=== PATIENT | female | born 1950 | race Caucasian/White ===

== ENCOUNTER → 2017-03-12 | Outpatient (CLI) | payer MEDICARE ==
[~2017-03-12] MED LIST: VICOBULK OR
--- NOTE | 2017-03-12 11:51 | REPMRS ---
Patient History The patient states she has not had a clinical breast exam in over a year. Patient is postmenopausal. Family history of breast cancer in mother at age 50 or over. Digital Woman Screen Mammo: March 12, 2017 - Exam #: [id number] Bilateral CC and MLO view(s) were taken. Technologist: Mellissa Fields, Technologist Prior study comparison: March 16, 2016, digital woman screen mammo performed at [facility]. March 02, 2014, digital woman screen mammo performed at [facility]. FINDINGS: There are scattered fibroglandular densities. There has been no change in the appearance of the mammogram from the prior studies. There is a mild amount of scattered fibroglandular density which is fairly symmetric. There is no interval development of dominant mass, architectural distortion, or clustered microcalcification suggestive of malignancy. ASSESSMENT: BI-RADS/ACR category 1 mammogram. Negative. Recommendation Routine screening mammogram in 1 year (for women over age 40). This mammogram was interpreted with the aid of an FDA-approved computer-aided dectection system. Electronically Signed By: Sidney Eckert MD 03/12/17 [id number]
--- NOTE | 2017-03-14 10:19 | DEXA ---
AP SPINE L1 - L4 1.019 -1.4 0.2 LT FEMUR TOTAL 0.846 -1.3 0.0 RT FEMUR TOTAL 0.854 -1.2 0.1 TOTAL BODY TOTAL OTHER DUAL FEMUR FRAX* ASSESSMENT Risk factors: History of fracture (adult). 10 year probability of fracture Major osteoporotic fracture 15.9 % Hip fracture 2.1 % COMMENTS: There is low bone density of the spine and hips. The density of the spine has decreased 4.0% since 03/12/2015. The density of the left hip has decreased 2.2% since 03/12/2015. The density of the right hip is 0.0% since 03/12/2015. FOLLOW-UP: Recommendation for the next bone density exam: 2 years. CHANELLE
== END ==
LOC: M WHC 09:57
PROVIDERS: ATTEND Physician Assistant Medical
DX: Z12.31 Encounter for screening mammogram for malignant neoplasm of breast (principal); Z13.820 Encounter for screening for osteoporosis; M89.9 Disorder of bone, unspecified
CPT/HCPCS: 77080; G0202

== ENCOUNTER → 2017-03-13 | Outpatient (CLI) | payer MEDICARE ==
[2017-03-13 13:32] LABS: ALBUMIN 3.7 GM/DL (3.2-5.2); ALBUMIN/GLOBULIN RATIO 0.95 (1.00-1.93); ALKALINE PHOSPHATASE 141 U/L (45-117); ALT/SGPT 31 U/L (12-78); ANION GAP 9 MEQ/L (8-16); AST/SGOT 26 U/L (15-37); BILIRUBIN,TOTAL 0.8 MG/DL (0.2-1.0); BLOOD UREA NITROGEN 13 MG/DL (7-18); CALCIUM LEVEL 9.3 MG/DL (8.8-10.2); CARBON DIOXIDE LEVEL 25 MEQ/L (21-32); CHLORIDE LEVEL 106 MEQ/L (98-107); CHOLESTEROL LEVEL 147 MG/DL (<200); FREE T4 1.11 NG/DL (0.76-1.46); GLOMERULAR FILTRATION RATE > 60.0 (>45); GLUCOSE, FASTING 107 MG/DL (80-110); SODIUM LEVEL 140 MEQ/L (136-145); TOTAL PROTEIN 7.6 GM/DL (6.4-8.2); TRIGLYCERIDES LEVEL 222 MG/DL (<150)
== END ==
LOC: M WUC 09:12
PROVIDERS: ATTEND Physician Assistant Medical
DX: E78.5 Hyperlipidemia, unspecified (principal)

== ENCOUNTER → 2018-03-14 | Outpatient (CLI) | payer MEDICARE | LOC: M WHC 12:53 | DX: Z12.31 Encounter for screening mammogram for malignant neoplasm of breast (principal) | CPT/HCPCS: 77067 ==

== ENCOUNTER → 2018-03-15 | Outpatient (CLI) | payer MEDICARE ==
[2018-03-15 13:19] LABS: ALBUMIN 3.5 GM/DL (3.2-5.2); ALBUMIN/GLOBULIN RATIO 0.92 (1.00-1.93); ALKALINE PHOSPHATASE 147 U/L (45-117); ALT/SGPT 32 U/L (12-78); ANION GAP 8 MEQ/L (8-16); AST/SGOT 30 U/L (7-37); BILIRUBIN,TOTAL 0.5 MG/DL (0.2-1.0); BLOOD UREA NITROGEN 13 MG/DL (7-18); CALCIUM LEVEL 9.1 MG/DL (8.8-10.2); CARBON DIOXIDE LEVEL 29 MEQ/L (21-32); CHLORIDE LEVEL 108 MEQ/L (98-107); CHOLESTEROL LEVEL 127 MG/DL (<200); CHOLESTEROL RISK RATIO 3.735 (<5); CREATININE FOR GFR 0.86 MG/DL (0.55-1.30); GLOMERULAR FILTRATION RATE > 60.0 (>45); GLUCOSE, FASTING 95 MG/DL (70-100); HDL CHOLESTEROL 34 MG/DL (>40); LDL CHOLESTEROL 54.6 MG/DL (<100); NON-HDL-C 93 MG/DL; POTASSIUM SERUM 4.5 MEQ/L (3.5-5.1); SODIUM LEVEL 145 MEQ/L (136-145); TOTAL PROTEIN 7.3 GM/DL (6.4-8.2); TRIGLYCERIDES LEVEL 192 MG/DL (<150)
== END ==
LOC: M WUC 08:41
DX: E78.5 Hyperlipidemia, unspecified (principal)
CPT/HCPCS: 80053

== ENCOUNTER → 2019-03-12 | Outpatient (CLI) | payer MEDICARE ==
[2019-03-12 17:38] LABS: ALBUMIN 3.8 GM/DL (3.2-5.2); ALT/SGPT 31 U/L (12-78); BILIRUBIN,TOTAL 0.6 MG/DL (0.2-1.0); BLOOD UREA NITROGEN 14 MG/DL (7-18); CALCIUM LEVEL 9.6 MG/DL (8.8-10.2); CARBON DIOXIDE LEVEL 30 MEQ/L (21-32); CHLORIDE LEVEL 104 MEQ/L (98-107); CHOLESTEROL LEVEL 165 MG/DL (<200); CHOLESTEROL RISK RATIO 3.837 (<5); GLOMERULAR FILTRATION RATE > 60.0 (>45); GLUCOSE, FASTING 84 MG/DL (70-100); HDL CHOLESTEROL 43 MG/DL (>40); LDL CHOLESTEROL 68 MG/DL (<100); NON-HDL-C 122 MG/DL; SODIUM LEVEL 139 MEQ/L (136-145); TOTAL PROTEIN 7.7 GM/DL (6.4-8.2); TRIGLYCERIDES LEVEL 268 MG/DL (<150)
== END ==
LOC: M WUC 14:00
PROVIDERS: ATTEND Physician Assistant Medical
DX: E78.5 Hyperlipidemia, unspecified (principal)

== ENCOUNTER → 2020-02-27 | Outpatient (CLI) | payer MEDICARE ==
[2020-02-27 11:12] LABS: ALBUMIN 3.8 GM/DL (3.2-5.2); ALT/SGPT 30 U/L (12-78); BILIRUBIN,TOTAL 0.5 MG/DL (0.2-1.0); BLOOD UREA NITROGEN 15 MG/DL (7-18); CALCIUM LEVEL 9.6 MG/DL (8.8-10.2); CARBON DIOXIDE LEVEL 26 MEQ/L (21-32); CHLORIDE LEVEL 108 MEQ/L (98-107); CHOLESTEROL LEVEL 147 MG/DL (<200); CREATININE FOR GFR 0.84 MG/DL (0.55-1.30); GLOMERULAR FILTRATION RATE > 60.0 (>45); GLUCOSE, FASTING 119 MG/DL (70-100); HDL CHOLESTEROL 44 MG/DL (>40); LDL CHOLESTEROL 69 MG/DL (<100); NON-HDL-C 103 MG/DL; POTASSIUM SERUM 4.8 MEQ/L (3.5-5.1); SODIUM LEVEL 141 MEQ/L (136-145); TOTAL PROTEIN 8.1 GM/DL (6.4-8.2); TRIGLYCERIDES LEVEL 172 MG/DL (<150)
== END ==
LOC: M WUC 08:41
PROVIDERS: ATTEND Physician Assistant Medical
DX: E78.5 Hyperlipidemia, unspecified (principal)

== ENCOUNTER → 2021-03-04 | Outpatient (CLI) | payer MEDICARE ==
[2021-03-04 11:39] LABS: BASO % 0.8 % (0.0-1.0); EOS # 0.2 10^3/uL (0.0-0.5); EOS % 4.7 % (0.0-3.0); HEMATOCRIT 44.7 % (36.0-47.0); HEMOGLOBIN 14.4 g/dl (12.0-15.5); LYMPH # 1.5 10^3/uL (1.5-5.0); LYMPH % 28.6 % (24.0-44.0); MEAN CORPUSCULAR HEMOGLOBIN 30.3 pg (27.0-33.0); MEAN CORPUSCULAR HGB CONC 32.2 g/dl (32.0-36.5); MEAN CORPUSCULAR VOLUME 93.9 fl (80.0-96.0); MONO # 0.6 10^3/uL (0.0-0.8); MONO % 11.9 % (2.0-8.0); NEUTROPHILS # 2.8 10^3/uL (1.5-8.5); NEUTROPHILS % 53.8 % (36.0-66.0); PLATELET COUNT, AUTOMATED 249 10^3/uL (150-450); RED BLOOD COUNT 4.76 10^6/uL (4.00-5.40); WHITE BLOOD COUNT 5.1 10^3/uL (4.0-10.0)
[2021-03-04 12:29] LABS: ALBUMIN 3.6 GM/DL (3.2-5.2); ALT/SGPT 32 U/L (12-78); BILIRUBIN,TOTAL 0.4 MG/DL (0.2-1.0); BLOOD UREA NITROGEN 15 MG/DL (7-18); CALCIUM LEVEL 9.7 MG/DL (8.8-10.2); CARBON DIOXIDE LEVEL 31 MEQ/L (21-32); CHLORIDE LEVEL 109 MEQ/L (98-107); CHOLESTEROL LEVEL 147 MG/DL (<200); CREATININE FOR GFR 0.82 MG/DL (0.55-1.30); GLOMERULAR FILTRATION RATE > 60.0 (>39); GLUCOSE, FASTING 92 MG/DL (70-100); HDL CHOLESTEROL 44 MG/DL (>40); LDL CHOLESTEROL 79 MG/DL (<100); NON-HDL-C 103 MG/DL; POTASSIUM SERUM 4.2 MEQ/L (3.5-5.1); SODIUM LEVEL 144 MEQ/L (136-145); TOTAL PROTEIN 7.5 GM/DL (6.4-8.2); TRIGLYCERIDES LEVEL 122 MG/DL (<150)
== END ==
LOC: M WUC 09:44
PROVIDERS: ATTEND Family Medicine
DX: Z00.00 Encounter for general adult medical examination without abnormal findings (principal); E78.5 Hyperlipidemia, unspecified; R73.01 Impaired fasting glucose

== ENCOUNTER → 2022-01-07 | Outpatient (CLI) | payer MEDICARE ==
[2022-01-07 13:11] LABS: ALBUMIN 3.8 GM/DL (3.2-5.2); BLOOD UREA NITROGEN 16 MG/DL (7-18); CALCIUM LEVEL 9.5 MG/DL (8.8-10.2); CARBON DIOXIDE LEVEL 26 MEQ/L (21-32); CHLORIDE LEVEL 106 MEQ/L (98-107); CREATININE FOR GFR 0.85 MG/DL (0.55-1.30); GLOMERULAR FILTRATION RATE > 60.0 (>39); GLUCOSE, FASTING 109 MG/DL (70-100); PHOSPHORUS LEVEL 1.9 MG/DL (2.5-4.9); POTASSIUM SERUM 3.7 MEQ/L (3.5-5.1); SODIUM LEVEL 138 MEQ/L (136-145)
== END ==
LOC: M LAB 11:49
PROVIDERS: ATTEND Student in an Organized Health Care Education/Training Program
DX: U07.1 COVID-19 (principal)

== ENCOUNTER 2022-01-17 15:20 | Inpatient (IN) | payer MEDICARE ==
[~2022-01-17] VITALS: Ht 165.1 cm; Wt 62.5 kg
[2022-01-17] MEDS ORDERED: ATOR1TAB21 PO (15:33)
[2022-01-17 16:07] LABS: VENOUS BASE EXCESS -0.3 (-2.0-2.0); VENOUS HCO3 23.4 MEQ/L (23.0-27.0); VENOUS O2 SATURATION 89.4 % (60.0-80.0); VENOUS PARTIAL PRESSURE CO2 35.7 mmHg (38.0-50.0); VENOUS PARTIAL PRESSURE O2 52.8 mmHg (30.0-50.0); VENOUS PH 7.434 UNITS (7.330-7.430); VENOUS TOTAL CO2 24.5 MEQ/L (24.0-28.0)
[2022-01-17 16:13] LABS: BASO % 0.2 % (0.0-1.0); HEMATOCRIT 44.7 % (36.0-47.0); HEMOGLOBIN 15.1 g/dl (12.0-15.5); LYMPH # 0.8 10^3/uL (1.5-5.0); MEAN CORPUSCULAR HEMOGLOBIN 31.1 pg (27.0-33.0); MEAN CORPUSCULAR HGB CONC 33.8 g/dl (32.0-36.5); MONO # 0.9 10^3/uL (0.0-0.8); MONO % 4.6 % (2.0-8.0); NEUTROPHILS # 16.8 10^3/uL (1.5-8.5); NEUTROPHILS % 89.7 % (36.0-66.0); PLATELET COUNT, AUTOMATED 339 10^3/uL (150-450); RED BLOOD COUNT 4.86 10^6/uL (4.00-5.40); WHITE BLOOD COUNT 18.8 10^3/uL (4.0-10.0)
[2022-01-17 16:41] LABS: OSMOLALITY SERUM 293 MOSM/KG (280-301)
[2022-01-17 17:01] LABS: ACETAMINOPHEN LEVEL < 2.0 UG/ML (10.0-30.0); ALBUMIN 3.6 GM/DL (3.2-5.2); ALT/SGPT 43 U/L (12-78); BILIRUBIN,DIRECT < 0.1 MG/DL (0.0-0.2); BILIRUBIN,TOTAL 0.4 MG/DL (0.2-1.0); BLOOD UREA NITROGEN 14 MG/DL (7-18); CALCIUM LEVEL 9.7 MG/DL (8.8-10.2); CARBON DIOXIDE LEVEL 22 MEQ/L (21-32); CHLORIDE LEVEL 110 MEQ/L (98-107); CREATININE FOR GFR 1.13 MG/DL (0.55-1.30); ETHYL ALCOHOL (ETHANOL) < 0.003 % (0.000-0.010); GLOMERULAR FILTRATION RATE 50.5 (>39); GLUCOSE, FASTING 133 MG/DL (70-100); SALICYLATE LEVEL < 1.7 MG/DL (5.0-30.0); SODIUM LEVEL 141 MEQ/L (136-145); TOTAL PROTEIN 7.8 GM/DL (6.4-8.2)
[2022-01-17 17:27] LABS: AMPHETAMINES LEVEL URINE NEGATIVE (NEGATIVE); BARBITURATES URINE NEGATIVE (NEGATIVE); BENZODIAZEPINES URINE NEGATIVE (NEGATIVE); CANNABINOIDS URINE NEGATIVE (NEGATIVE); COCAINE METABOLITE URINE NEGATIVE (NEGATIVE); METHADONE URINE NEGATIVE (NEGATIVE); OPIATES URINE NEGATIVE (NEGATIVE); PHENCYCLIDINE URINE NEGATIVE (NEGATIVE)
[2022-01-17 17:34] LABS: RSV AMPLIFICATION NEGATIVE (NEGATIVE)
[2022-01-17] MEDS ORDERED: NS 1,000 ML IV ONE ×2 (17:55→18:30)
[2022-01-17] MEDS ORDERED: LACTULOSE 20 GM/30 ML SYRUP UD PR ONE (18:30)
[2022-01-17] MEDS ORDERED: HOME MED LIST COMPLETE! XX SCH (18:50)
[2022-01-17 19:14] LABS: ERYTHROCYTE SEDIMENTATION RATE 22 mm/hr (0-30)
[2022-01-17] MEDS ORDERED: KETOROLAC 30 MG/ML 1ML VIAL IV ONE (19:20)
[2022-01-17] MEDS ORDERED: METOCLOPRAMIDE INJ 10MG/2ML VIAL (J2765 PER 1) IV ONE (19:20)
[2022-01-17] MEDS: cefTRIAXone SOD 2 GM in D5W MINI-BAG PLUS 50 ML IV SCH (19:46)
[2022-01-17] MEDS ORDERED: GLUCAGON INJ 1MG VIAL SC PRN (20:20)
[2022-01-17] MEDS ORDERED: GLUCOSE 4GM CHEW TABLET PO PRN (20:20)
[2022-01-17] MEDS ORDERED: DEXTROSE 50% 50 ML SYRINGE IV PRN (20:20)
[2022-01-17] MEDS ORDERED: ACETAMINOPHEN TAB 650MG DOSE (2X325MG) PO ONE (20:20)
[2022-01-17 20:35] LABS: INR 1.05; PROTHROMBIN TIME 14.1 SECONDS (12.7-14.5)
[2022-01-17 20:36] LABS: PARTIAL THROMBOPLASTIN TIME 27.6 SECONDS (25.9-37.0)
[2022-01-17 20:39] LABS: D-DIMER QUANT 2829.41 ng/ml (<500)
[2022-01-17 20:51] LABS: FERRITIN 341 NG/ML (8-252); LDH LACTATE DEHYDROGENASE 261 U/L (84-246)
[2022-01-17] MEDS ORDERED: ATORVASTATIN 20 MG TAB PO ONE (23:05)
[2022-01-17] MEDS ORDERED: ASPIRIN 325 MG TAB PO ONE (23:05)
[2022-01-17] MEDS: D5W/0.45% SODIUM CHLORIDE 1,000 ML IV SCH (23:40)
[2022-01-18 06:52] LABS: BASO # 0.1 10^3/uL (0.0-0.2); BASO % 0.5 % (0.0-1.0); EOS # 0.1 10^3/uL (0.0-0.5); EOS % 1.2 % (0.0-3.0); HEMATOCRIT 37.8 % (36.0-47.0); LYMPH # 1.4 10^3/uL (1.5-5.0); LYMPH % 14.2 % (24.0-44.0); MEAN CORPUSCULAR HEMOGLOBIN 30.6 pg (27.0-33.0); MEAN CORPUSCULAR HGB CONC 32.5 g/dl (32.0-36.5); MONO # 1.1 10^3/uL (0.0-0.8); MONO % 10.7 % (2.0-8.0); NEUTROPHILS # 7.4 10^3/uL (1.5-8.5); NEUTROPHILS % 72.9 % (36.0-66.0); PLATELET COUNT, AUTOMATED 256 10^3/uL (150-450); RED BLOOD COUNT 4.02 10^6/uL (4.00-5.40); WHITE BLOOD COUNT 10.2 10^3/uL (4.0-10.0)
[2022-01-18 06:58] LABS: HEMOGLOBIN 12.3 g/dl (12.0-15.5)
[2022-01-18 07:26] LABS: CALCIUM LEVEL 7.8 MG/DL (8.8-10.2); CREATININE FOR GFR 1.01 MG/DL (0.55-1.30); GLOMERULAR FILTRATION RATE 57.5 (>39); MAGNESIUM LEVEL 2.4 MG/DL (1.8-2.4); POTASSIUM SERUM 3.8 MEQ/L (3.5-5.1)
[2022-01-18] MEDS ORDERED: NS 1,000 ML IV ONE (07:35)
[2022-01-18] MEDS ORDERED: ASPIRIN ENTERIC 325 MG TAB PO ONE (07:35)
[2022-01-18 08:39] LABS: CHOLESTEROL RISK RATIO 3.666 (<5)
[2022-01-18] MEDS: D5W/0.45% SODIUM CHLORIDE 1,000 ML IV SCH (10:30)
[2022-01-18 11:30] VITALS: BP 139/65
[2022-01-18 16:00] VITALS: BP 136/69
[2022-01-18] MEDS ORDERED: NS 1,000 ML IV SCH (18:45)
[2022-01-18 20:00] VITALS: BP 142/64; O2SAT 96
[2022-01-18] MEDS: cefTRIAXone SOD 2 GM in D5W MINI-BAG PLUS 50 ML IV SCH (20:11)
[2022-01-18] MEDS ORDERED: ATORVASTATIN 20 MG TAB PO SCH (21:00)
[2022-01-19] VITALS: BP 141/76
[2022-01-19 04:00] VITALS: BP 144/89
[2022-01-19 06:22] LABS: BASO % 0.4 % (0.0-1.0); EOS # 0.1 10^3/uL (0.0-0.5); EOS % 1.4 % (0.0-3.0); HEMATOCRIT 39.5 % (36.0-47.0); HEMOGLOBIN 13.2 g/dl (12.0-15.5); LYMPH # 1.5 10^3/uL (1.5-5.0); LYMPH % 15.6 % (24.0-44.0); MEAN CORPUSCULAR HEMOGLOBIN 31.4 pg (27.0-33.0); MEAN CORPUSCULAR HGB CONC 33.4 g/dl (32.0-36.5); MEAN CORPUSCULAR VOLUME 93.8 fl (80.0-96.0); MONO # 0.8 10^3/uL (0.0-0.8); MONO % 8.4 % (2.0-8.0); NEUTROPHILS % 73.9 % (36.0-66.0); PLATELET COUNT, AUTOMATED 271 10^3/uL (150-450); RED BLOOD COUNT 4.21 10^6/uL (4.00-5.40); WHITE BLOOD COUNT 9.5 10^3/uL (4.0-10.0)
[2022-01-19 06:32] LABS: PROTHROMBIN TIME 13.6 SECONDS (12.7-14.5)
[2022-01-19 06:33] LABS: PARTIAL THROMBOPLASTIN TIME 28.6 SECONDS (25.9-37.0)
[2022-01-19 06:57] LABS: ALT/SGPT 60 U/L (12-78); BILIRUBIN,DIRECT 0.1 MG/DL (0.0-0.2); BILIRUBIN,TOTAL 0.4 MG/DL (0.2-1.0); BLOOD UREA NITROGEN 6 MG/DL (7-18); CALCIUM LEVEL 9.1 MG/DL (8.8-10.2); CARBON DIOXIDE LEVEL 24 MEQ/L (21-32); CHLORIDE LEVEL 116 MEQ/L (98-107); CREATININE FOR GFR 0.82 MG/DL (0.55-1.30); FERRITIN 236 NG/ML (8-252); GLOMERULAR FILTRATION RATE > 60.0 (>39); GLUCOSE, FASTING 109 MG/DL (70-100); LDH LACTATE DEHYDROGENASE 411 U/L (84-246); MAGNESIUM LEVEL 2.3 MG/DL (1.8-2.4); NT-PRO BNP 1951 PG/ML (<125); POTASSIUM SERUM 3.4 MEQ/L (3.5-5.1); SODIUM LEVEL 147 MEQ/L (136-145); TOTAL PROTEIN 7.3 GM/DL (6.4-8.2)
[2022-01-19] MEDS ORDERED: ATOR1TAB21 PO (07:27)
[2022-01-19] MEDS ORDERED: ASPI32ECTA PO (07:27)
[2022-01-19] MEDS ORDERED: ASPI81CH33 PO (07:28)
[2022-01-19 08:00] VITALS: BP 183/77
[2022-01-19] MEDS ORDERED: ASPIRIN ENTERIC 325 MG TAB PO SCH (09:00)
[2022-01-19] MEDS ORDERED: ASPIRIN 81MG ENTERIC TABLET PO SCH (09:00)
[2022-01-19] MEDS ORDERED: FLUBLOK(EGG FREE)(QUAD)INFLUENZA VACC 0.5ML SYRINGE 18YRS & OLDER IM ONE (09:00)
[2022-01-19] MEDS ORDERED: PREVNAR 13 VACCINE SYRINGE IM ONE (09:00)
[2022-01-19] MEDS ORDERED: AMOX875T2 PO (09:23)
[2022-01-19 12:00] VITALS: BP 165/68
[2022-01-20] MEDS ORDERED: BAYE325T12 PO (16:06)
[2022-01-20] MEDS ORDERED: CALC-356 PO (16:06)
[2022-01-20] MEDS ORDERED: ATOR1TAB21 PO (16:06)
[2022-01-20] MEDS ORDERED: AMOX875T2 PO (16:06)
== END 2022-01-19 12:42 | disposition home or self-care (01) | DRG 64 ==
LOC: M ED 15:20 → M ED INP 17:55 → ENRESERV 01-18 10:17 → M 4MAIN 01-18 11:21
PROVIDERS: ADMIT General Practice; ATTEND General Practice
DX: I63.89 Other cerebral infarction (principal); G93.41 Metabolic encephalopathy; E72.20 Disorder of urea cycle metabolism, unspecified; R65.10 Systemic inflammatory response syndrome (SIRS) of non-infectious origin without acute organ dysfunction; E87.2 Acidosis; N39.0 Urinary tract infection, site not specified; I10 Essential (primary) hypertension; E78.00 Pure hypercholesterolemia, unspecified; Z86.16 Personal history of COVID-19; B96.29 Other Escherichia coli [E. coli] as the cause of diseases classified elsewhere; I27.20 Pulmonary hypertension, unspecified

== ENCOUNTER 2022-01-20 12:33 | Inpatient (IN) | payer MEDICARE ==
[~2022-01-20] VITALS: Ht 165.1 cm; Wt 59.0 kg
[~2022-01-20 12:33] MED LIST changes: +AMOX875T2 PO; +ASPI32ECTA PO; +ASPI81CH33 PO; +ATOR1TAB21 PO
[2022-01-20] MEDS ORDERED: LORazepam 2 MG/ML VIAL As Ordered ONE (12:45)
[2022-01-20] MEDS ORDERED: LORazepam 2 MG/ML VIAL IV STA (13:18)
[2022-01-20] MEDS ORDERED: levETIRAcetam INJection 500 MG in D5W MINI-BAG PLUS 100 ML IV ONE ×2 (13:20→15:30)
[2022-01-20 13:21] LABS: BASO # 0.1 10^3/uL (0.0-0.2); BASO % 0.4 % (0.0-1.0); EOS # 0.1 10^3/uL (0.0-0.5); EOS % 0.7 % (0.0-3.0); HEMATOCRIT 41.9 % (36.0-47.0); LYMPH # 1.4 10^3/uL (1.5-5.0); LYMPH % 11.3 % (24.0-44.0); MEAN CORPUSCULAR HEMOGLOBIN 31.2 pg (27.0-33.0); MEAN CORPUSCULAR HGB CONC 33.4 g/dl (32.0-36.5); MEAN CORPUSCULAR VOLUME 93.3 fl (80.0-96.0); NEUTROPHILS # 9.9 10^3/uL (1.5-8.5); NEUTROPHILS % 79.1 % (36.0-66.0); PLATELET COUNT, AUTOMATED 304 10^3/uL (150-450); RED BLOOD COUNT 4.49 10^6/uL (4.00-5.40); WHITE BLOOD COUNT 12.5 10^3/uL (4.0-10.0)
[2022-01-20 13:23] LABS: INR 0.96; PROTHROMBIN TIME 13.2 SECONDS (12.7-14.5)
[2022-01-20 13:24] LABS: PARTIAL THROMBOPLASTIN TIME 23.9 SECONDS (25.9-37.0)
[2022-01-20 13:37] LABS: BLOOD UREA NITROGEN 12 MG/DL (7-18); CALCIUM LEVEL 10.3 MG/DL (8.8-10.2); CARBON DIOXIDE LEVEL 25 MEQ/L (21-32); CHLORIDE LEVEL 114 MEQ/L (98-107); CREATININE FOR GFR 0.95 MG/DL (0.55-1.30); GLOMERULAR FILTRATION RATE > 60.0 (>39); GLUCOSE, FASTING 113 MG/DL (70-100); POTASSIUM SERUM 5.4 MEQ/L (3.5-5.1); SODIUM LEVEL 144 MEQ/L (136-145)
[2022-01-20 14:06] LABS: CK-MB VALUE MASS 7.2 NG/ML (<3.6); MB/CK RELATIVE INDEX 0.07 (< OR =4)
[2022-01-20] MEDS ORDERED: ATOR1TAB21 PO (16:06)
[2022-01-20] MEDS ORDERED: CALC-356 PO (16:06)
[2022-01-20] MEDS ORDERED: AMOX875T2 PO (16:06)
[2022-01-20] MEDS ORDERED: BAYE325T12 PO (16:06)
[2022-01-20] MEDS ORDERED: HOME MED LIST COMPLETE! XX SCH (16:10)
[2022-01-20] MEDS ORDERED: NS 1,000 ML IV ONE (16:25)
[2022-01-20 18:29] LABS: CK-MB VALUE MASS 5.8 NG/ML (<3.6); MB/CK RELATIVE INDEX 0.07 (< OR =4)
[2022-01-20] MEDS: NS 1,000 ML IV SCH (19:26)
[2022-01-20 22:19] LABS: ABG BASE EXCESS -0.1 (-2.0-2.0); ABG HCO3 25.1 MEQ/L (22.0-26.0); ABG O2 SATURATION 99.2 % (95.0-99.0); ABG PARTIAL PRESSURE CO2 42.9 mmHg (35.0-45.0); ABG PARTIAL PRESSURE O2 168.5 mmHg (75.0-100.0); ABG STANDARD HCO3 24.4 MEQ/L (22.0-26.0); ABG TOTAL CO2 26.4 MEQ/L (23.0-31.0); ABG pH (ARTERIAL) 7.385 UNITS (7.350-7.450)
[2022-01-20 23:53] VITALS: BP 135/63
[2022-01-21] MEDS: cefTRIAXone SOD 1 GM in D5W MINI-BAG PLUS 50 ML IV SCH (00:07)
[2022-01-21 04:00] VITALS: BP 155/71
[2022-01-21] MEDS: NS 1,000 ML IV SCH (04:25)
[2022-01-21 06:19] LABS: BASO % 0.4 % (0.0-1.0); EOS # 0.3 10^3/uL (0.0-0.5); HEMATOCRIT 36.1 % (36.0-47.0); LYMPH # 1.4 10^3/uL (1.5-5.0); LYMPH % 15.7 % (24.0-44.0); MEAN CORPUSCULAR HEMOGLOBIN 31.5 pg (27.0-33.0); MEAN CORPUSCULAR VOLUME 95.5 fl (80.0-96.0); MONO # 0.6 10^3/uL (0.0-0.8); MONO % 7.1 % (2.0-8.0); NEUTROPHILS # 6.6 10^3/uL (1.5-8.5); NEUTROPHILS % 73.6 % (36.0-66.0); PLATELET COUNT, AUTOMATED 239 10^3/uL (150-450); RED BLOOD COUNT 3.78 10^6/uL (4.00-5.40)
[2022-01-21 06:22] LABS: HEMOGLOBIN 11.9 g/dl (12.0-15.5)
[2022-01-21 06:45] LABS: BLOOD UREA NITROGEN 8 MG/DL (7-18); CARBON DIOXIDE LEVEL 25 MEQ/L (21-32); CHLORIDE LEVEL 116 MEQ/L (98-107); CREATININE FOR GFR 0.59 MG/DL (0.55-1.30); GLOMERULAR FILTRATION RATE > 60.0 (>39); GLUCOSE, FASTING 84 MG/DL (70-100); POTASSIUM SERUM 3.5 MEQ/L (3.5-5.1); SODIUM LEVEL 146 MEQ/L (136-145)
[2022-01-21 07:37] VITALS: BP 122/59
[2022-01-21] MEDS ORDERED: levETIRAcetam INJection 500 MG in D5W MINI-BAG PLUS 100 ML IV SCH (09:00)
[2022-01-21] MEDS: ASPIRIN 325 MG TAB PO SCH (09:16)
[2022-01-21] MEDS ORDERED: levETIRAcetam INJection 500 MG in D5W MINI-BAG PLUS 100 ML IV ONE (12:40)
[2022-01-21] MEDS ORDERED: levETIRAcetam INJection 1,000 MG in D5W 100 ML IV SCH (12:45)
[2022-01-21] MEDS: NS 0.45% 1,000 ML IV SCH (13:08)
[2022-01-21 15:48] VITALS: BP 130/58
[2022-01-21 20:01] VITALS: BP 145/66
[2022-01-21] MEDS: ATORVASTATIN 20 MG TAB PO SCH (20:52)
[2022-01-21] MEDS: levETIRAcetam 250MG TABLET (KEPPRA) PO SCH (20:53)
[2022-01-22] MEDS: NS 0.45% 1,000 ML IV SCH (00:27)
[2022-01-22] MEDS: cefTRIAXone SOD 1 GM in D5W MINI-BAG PLUS 50 ML IV SCH ×2 (00:27→23:45)
[2022-01-22 04:09] VITALS: BP_SYST 126; BP_SYST 137; BP_DIAS 59; BP_DIAS 60
[2022-01-22 05:25] LABS: BASO % 0.4 % (0.0-1.0); EOS # 0.3 10^3/uL (0.0-0.5); EOS % 3.5 % (0.0-3.0); HEMATOCRIT 35.2 % (36.0-47.0); HEMOGLOBIN 11.5 g/dl (12.0-15.5); LYMPH # 1.5 10^3/uL (1.5-5.0); LYMPH % 17.9 % (24.0-44.0); MEAN CORPUSCULAR HGB CONC 32.7 g/dl (32.0-36.5); MEAN CORPUSCULAR VOLUME 94.9 fl (80.0-96.0); MONO # 0.8 10^3/uL (0.0-0.8); MONO % 8.9 % (2.0-8.0); NEUTROPHILS # 5.8 10^3/uL (1.5-8.5); NEUTROPHILS % 69.1 % (36.0-66.0); PLATELET COUNT, AUTOMATED 237 10^3/uL (150-450); RED BLOOD COUNT 3.71 10^6/uL (4.00-5.40); WHITE BLOOD COUNT 8.4 10^3/uL (4.0-10.0)
[2022-01-22 05:58] LABS: BLOOD UREA NITROGEN 7 MG/DL (7-18); CALCIUM LEVEL 8.2 MG/DL (8.8-10.2); CARBON DIOXIDE LEVEL 26 MEQ/L (21-32); CHLORIDE LEVEL 114 MEQ/L (98-107); CREATININE FOR GFR 0.64 MG/DL (0.55-1.30); GLOMERULAR FILTRATION RATE > 60.0 (>39); GLUCOSE, FASTING 89 MG/DL (70-100); POTASSIUM SERUM 3.4 MEQ/L (3.5-5.1); SODIUM LEVEL 144 MEQ/L (136-145)
[2022-01-22 07:11] VITALS: BP 136/63
[2022-01-22] MEDS ORDERED: POTASSIUM CHLORIDE 10MEQ SR TABLET PO ONE (07:30)
[2022-01-22] MEDS: ASPIRIN 325 MG TAB PO SCH (09:39)
[2022-01-22] MEDS: levETIRAcetam 250MG TABLET (KEPPRA) PO SCH ×2 (09:40→20:39)
[2022-01-22 11:42] VITALS: BP 125/60
[2022-01-22 13:44] VITALS: BP 137/63
[2022-01-22 14:21] VITALS: BP 137/63
[2022-01-22 20:10] VITALS: BP 143/82
[2022-01-22] MEDS: ATORVASTATIN 20 MG TAB PO SCH (20:39)
[2022-01-23 06:00] VITALS: BP 117/76
[2022-01-23 06:27] LABS: BASO % 0.3 % (0.0-1.0); EOS # 0.3 10^3/uL (0.0-0.5); EOS % 3.6 % (0.0-3.0); HEMATOCRIT 38.2 % (36.0-47.0); HEMOGLOBIN 12.5 g/dl (12.0-15.5); LYMPH # 1.7 10^3/uL (1.5-5.0); LYMPH % 19.3 % (24.0-44.0); MEAN CORPUSCULAR HEMOGLOBIN 30.8 pg (27.0-33.0); MEAN CORPUSCULAR HGB CONC 32.7 g/dl (32.0-36.5); MEAN CORPUSCULAR VOLUME 94.1 fl (80.0-96.0); MONO # 0.7 10^3/uL (0.0-0.8); MONO % 8.3 % (2.0-8.0); NEUTROPHILS % 68.2 % (36.0-66.0); PLATELET COUNT, AUTOMATED 262 10^3/uL (150-450); RED BLOOD COUNT 4.06 10^6/uL (4.00-5.40); WHITE BLOOD COUNT 8.8 10^3/uL (4.0-10.0)
[2022-01-23 06:55] LABS: BLOOD UREA NITROGEN 9 MG/DL (7-18); CARBON DIOXIDE LEVEL 28 MEQ/L (21-32); CHLORIDE LEVEL 109 MEQ/L (98-107); CREATININE FOR GFR 0.73 MG/DL (0.55-1.30); GLOMERULAR FILTRATION RATE > 60.0 (>39); GLUCOSE, FASTING 92 MG/DL (70-100); SODIUM LEVEL 142 MEQ/L (136-145)
[2022-01-23] MEDS: ASPIRIN 325 MG TAB PO SCH (08:25)
[2022-01-23] MEDS: levETIRAcetam 250MG TABLET (KEPPRA) PO SCH ×2 (08:26→20:00)
[2022-01-23 14:00] VITALS: BP_SYST 115; BP_SYST 119; BP_DIAS 58; BP_DIAS 68
[2022-01-23] MEDS: ATORVASTATIN 20 MG TAB PO SCH (20:00)
[2022-01-23 22:00] VITALS: BP 139/69
[2022-01-24 06:00] VITALS: BP 142/68
[2022-01-24 06:15] LABS: BASO % 0.5 % (0.0-1.0); EOS # 0.3 10^3/uL (0.0-0.5); EOS % 3.9 % (0.0-3.0); HEMOGLOBIN 13.3 g/dl (12.0-15.5); LYMPH # 1.7 10^3/uL (1.5-5.0); LYMPH % 19.4 % (24.0-44.0); MEAN CORPUSCULAR HEMOGLOBIN 31.4 pg (27.0-33.0); MEAN CORPUSCULAR HGB CONC 33.3 g/dl (32.0-36.5); MEAN CORPUSCULAR VOLUME 94.3 fl (80.0-96.0); MONO # 0.7 10^3/uL (0.0-0.8); MONO % 8.4 % (2.0-8.0); NEUTROPHILS # 5.8 10^3/uL (1.5-8.5); NEUTROPHILS % 67.2 % (36.0-66.0); PLATELET COUNT, AUTOMATED 273 10^3/uL (150-450); RED BLOOD COUNT 4.24 10^6/uL (4.00-5.40); WHITE BLOOD COUNT 8.6 10^3/uL (4.0-10.0)
[2022-01-24 07:12] LABS: BLOOD UREA NITROGEN 13 MG/DL (7-18); CALCIUM LEVEL 9.1 MG/DL (8.8-10.2); CARBON DIOXIDE LEVEL 30 MEQ/L (21-32); CHLORIDE LEVEL 106 MEQ/L (98-107); CREATININE FOR GFR 0.96 MG/DL (0.55-1.30); GLOMERULAR FILTRATION RATE > 60.0 (>39); GLUCOSE, FASTING 92 MG/DL (70-100); POTASSIUM SERUM 4.1 MEQ/L (3.5-5.1); SODIUM LEVEL 141 MEQ/L (136-145)
[2022-01-24] MEDS: levETIRAcetam 250MG TABLET (KEPPRA) PO SCH ×2 (08:12→20:44)
[2022-01-24] MEDS: ASPIRIN 325 MG TAB PO SCH (08:12)
[2022-01-24] MEDS: ATORVASTATIN 20 MG TAB PO SCH (20:44)
[2022-01-25 06:00] VITALS: BP 114/63
[2022-01-25 06:18] LABS: HEMATOCRIT 41.4 % (36.0-47.0); HEMOGLOBIN 13.5 g/dl (12.0-15.5); MEAN CORPUSCULAR HEMOGLOBIN 30.8 pg (27.0-33.0); MEAN CORPUSCULAR HGB CONC 32.6 g/dl (32.0-36.5); MEAN CORPUSCULAR VOLUME 94.3 fl (80.0-96.0); PLATELET COUNT, AUTOMATED 279 10^3/uL (150-450); RED BLOOD COUNT 4.39 10^6/uL (4.00-5.40); WHITE BLOOD COUNT 9.2 10^3/uL (4.0-10.0)
[2022-01-25 07:00] LABS: BLOOD UREA NITROGEN 16 MG/DL (7-18); CALCIUM LEVEL 9.4 MG/DL (8.8-10.2); CARBON DIOXIDE LEVEL 28 MEQ/L (21-32); CHLORIDE LEVEL 111 MEQ/L (98-107); CREATININE FOR GFR 0.75 MG/DL (0.55-1.30); GLOMERULAR FILTRATION RATE > 60.0 (>39); GLUCOSE, FASTING 97 MG/DL (70-100); POTASSIUM SERUM 4.2 MEQ/L (3.5-5.1); SODIUM LEVEL 142 MEQ/L (136-145)
[2022-01-25 07:13] LABS: ATYPICAL LYMPH 1 % (0-5); EOSINOPHILS 4 % (0-3); LYMPHOCYTES 21 % (16-44); MONOCYTES 5 % (0-5); NEUTROPHILS 69 % (28-66); PLATELET ESTIMATE NORMAL (NORMAL)
[2022-01-25 07:14] LABS: ANISOCYTOSIS 1+
[2022-01-25] MEDS: levETIRAcetam 250MG TABLET (KEPPRA) PO SCH (08:43)
[2022-01-25] MEDS: ASPIRIN 325 MG TAB PO SCH (08:43)
[2022-01-25] MEDS ORDERED: KEPP10002 PO (10:52)
== END 2022-01-25 15:36 | disposition home health service (06) | DRG 57 ==
LOC: M ED 12:33 → M ED INP 16:27 → M PCU 23:05 → M MSPAV 01-22 13:38
PROVIDERS: ADMIT Internal Medicine Nephrology; ATTEND Internal Medicine Nephrology
DX: I69.398 Other sequelae of cerebral infarction (principal); N39.0 Urinary tract infection, site not specified; E87.0 Hyperosmolality and hypernatremia; M62.82 Rhabdomyolysis; I27.21 Secondary pulmonary arterial hypertension; E78.00 Pure hypercholesterolemia, unspecified; G40.901 Epilepsy, unspecified, not intractable, with status epilepticus; E87.5 Hyperkalemia; Z79.82 Long term (current) use of aspirin; Z79.899 Other long term (current) drug therapy; B96.29 Other Escherichia coli [E. coli] as the cause of diseases classified elsewhere

== ENCOUNTER → 2022-02-03 | Outpatient (CLI) | payer MEDICARE ==
[~2022-02-03] MED LIST changes: +BAYE325T12 PO; +CALC-356 PO; +KEPP10002 PO
[2022-02-03 16:51] LABS: BASO # 0.1 10^3/uL (0.0-0.2); BASO % 0.9 % (0.0-1.0); EOS # 0.3 10^3/uL (0.0-0.5); EOS % 4.9 % (0.0-3.0); HEMATOCRIT 43.8 % (36.0-47.0); HEMOGLOBIN 14.5 g/dl (12.0-15.5); LYMPH # 1.7 10^3/uL (1.5-5.0); LYMPH % 26.5 % (24.0-44.0); MEAN CORPUSCULAR HEMOGLOBIN 30.7 pg (27.0-33.0); MEAN CORPUSCULAR HGB CONC 33.1 g/dl (32.0-36.5); MEAN CORPUSCULAR VOLUME 92.8 fl (80.0-96.0); MONO # 0.6 10^3/uL (0.0-0.8); MONO % 9.8 % (2.0-8.0); NEUTROPHILS # 3.8 10^3/uL (1.5-8.5); NEUTROPHILS % 57.6 % (36.0-66.0); PLATELET COUNT, AUTOMATED 326 10^3/uL (150-450); RED BLOOD COUNT 4.72 10^6/uL (4.00-5.40); WHITE BLOOD COUNT 6.5 10^3/uL (4.0-10.0)
[2022-02-03 17:21] LABS: ALBUMIN 3.5 GM/DL (3.2-5.2); ALT/SGPT 42 U/L (12-78); BILIRUBIN,TOTAL 0.2 MG/DL (0.2-1.0); BLOOD UREA NITROGEN 16 MG/DL (7-18); CALCIUM LEVEL 9.9 MG/DL (8.8-10.2); CARBON DIOXIDE LEVEL 30 MEQ/L (21-32); CHLORIDE LEVEL 105 MEQ/L (98-107); CREATININE FOR GFR 0.82 MG/DL (0.55-1.30); GLOMERULAR FILTRATION RATE > 60.0 (>39); GLUCOSE, FASTING 131 MG/DL (70-100); POTASSIUM SERUM 4.4 MEQ/L (3.5-5.1); SODIUM LEVEL 141 MEQ/L (136-145); TOTAL PROTEIN 7.6 GM/DL (6.4-8.2)
[2022-02-03 17:23] LABS: TOTAL 25(OH) VITAMIN D 20.7 NG/ML (30.0-100.0); VITAMIN B12 LEVEL 514 PG/ML
[2022-02-03 17:24] LABS: FOLATE 7.6 NG/ML
== END ==
LOC: M LAB 16:04
PROVIDERS: ATTEND Psychiatry & Neurology Neurology
DX: R56.9 Unspecified convulsions (principal); E53.8 Deficiency of other specified B group vitamins; Z79.899 Other long term (current) drug therapy

== ENCOUNTER → 2022-08-28 | Outpatient (CLI) | payer MEDICARE ==
[2022-08-28 09:47] LABS: ALBUMIN 3.8 G/DL (3.2-5.2); ALKALINE PHOSPHATASE 145 U/L (46-116); ALT/SGPT 20 U/L (7.0-40); AST/SGOT 28 U/L (<34); BILIRUBIN,TOTAL 0.5 MG/DL (0.3-1.2); BLOOD UREA NITROGEN 18 MG/DL (9-23); CALCIUM LEVEL 9.6 MG/DL (8.3-10.6); CARBON DIOXIDE LEVEL 25 MMOL/L (20-31); CHLORIDE LEVEL 104 MMOL/L (98-107); CHOLESTEROL LEVEL 118 MG/DL (<200); CHOLESTEROL RISK RATIO 2.71 (<5); CREATININE FOR GFR 0.76 MG/DL (0.55-1.30); GLOMERULAR FILTRATION RATE > 60.0 (>39); GLUCOSE, FASTING 104 MG/DL (74-106); HDL CHOLESTEROL 43.4 MG/DL (>40); LDL CHOLESTEROL 53.4 MG/DL (<100); NON-HDL-C 75 MG/DL; POTASSIUM SERUM 4.2 MMOL/L (3.5-5.1); SODIUM LEVEL 141 MMOL/L (136-145); TOTAL PROTEIN 7.7 G/DL (5.7-8.2); TRIGLYCERIDES LEVEL 106 MG/DL (<150)
== END ==
LOC: M LAB 08:57
PROVIDERS: ATTEND Nurse Practitioner Family
DX: E78.5 Hyperlipidemia, unspecified (principal)

== ENCOUNTER → 2022-11-08 | Outpatient (CLI) | payer MEDICARE ==
[~2022-11-08] MED LIST changes: +ECOT81TA5 PO; +VITA500045
== END ==
LOC: M LABSMTC 11:48
PROVIDERS: ATTEND Anesthesiology
DX: Z20.822 Contact with and (suspected) exposure to COVID-19 (principal)

== ENCOUNTER 2022-11-13 09:44 | Day surgery (SDC) | payer MEDICARE ==
[~2022-11-13] VITALS: Ht 165.1 cm; Wt 57.6 kg
[~2022-11-13 09:44] MED LIST changes: +CYCLOPENTOLATE 1% OPHTH SOLN 2ML BTL OD SCH; +FLURBIPROFEN 0.03% OPHTH SOLN 2.5 ML OD SCH; +LIDOCAINE 1% SDV 5ML VIAL As Ordered ONE; +LR 1,000 ML IV SCH; +PHENYLEPHRINE 2.5% OPHTH SOL 2ML OD SCH; +TETRACAINE 0.5% OPHTH SOLN 4ML OD SCH
[2022-11-13] MEDS ORDERED: fentaNYL 100 MCG/2 ML INJECTION As Ordered ONE (11:58)
[2022-11-13] MEDS ORDERED: MIDAZOLAM INJ 2MG/2ML VIAL As Ordered ONE (11:58)
[2022-11-13 12:11] VITALS: BP 132/62
== END 2022-11-13 12:35 | disposition home or self-care (01) ==
LOC: M SDC 09:44
PROVIDERS: ATTEND Ophthalmology
DX: H25.11 Age-related nuclear cataract, right eye (principal); E78.5 Hyperlipidemia, unspecified; G43.909 Migraine, unspecified, not intractable, without status migrainosus; Z79.899 Other long term (current) drug therapy; Z86.73 Personal history of transient ischemic attack (TIA), and cerebral infarction without residual deficits
CPT/HCPCS: 66984; J2250; J3010; V2632

== ENCOUNTER 2022-12-18 09:16 | Day surgery (SDC) | payer MEDICARE ==
[~2022-12-18] VITALS: Ht 165.1 cm; Wt 57.2 kg
[~2022-12-18 09:16] MED LIST changes: -CYCLOPENTOLATE 1% OPHTH SOLN 2ML BTL OD SCH; +CYCLOPENTOLATE 1% OPHTH SOLN 2ML BTL OS SCH; -FLURBIPROFEN 0.03% OPHTH SOLN 2.5 ML OD SCH; +FLURBIPROFEN 0.03% OPHTH SOLN 2.5 ML OS SCH; +MIDAZOLAM INJ 2MG/2ML VIAL As Ordered ONE; -PHENYLEPHRINE 2.5% OPHTH SOL 2ML OD SCH; +PHENYLEPHRINE 2.5% OPHTH SOL 2ML OS SCH; -TETRACAINE 0.5% OPHTH SOLN 4ML OD SCH; +TETRACAINE 0.5% OPHTH SOLN 4ML OS SCH; +fentaNYL 100 MCG/2 ML INJECTION As Ordered ONE
[2022-12-18 11:56] VITALS: BP 117/56
== END 2022-12-18 12:59 | disposition home or self-care (01) ==
LOC: M SDC 09:16
PROVIDERS: ATTEND Ophthalmology
DX: H25.12 Age-related nuclear cataract, left eye (principal); E78.5 Hyperlipidemia, unspecified; G40.909 Epilepsy, unspecified, not intractable, without status epilepticus; Z86.73 Personal history of transient ischemic attack (TIA), and cerebral infarction without residual deficits; Z79.899 Other long term (current) drug therapy
CPT/HCPCS: 66984; J2250; J3010; V2632

== ENCOUNTER 2023-01-09 20:11 | Observation (INO) | payer MEDICARE ==
[~2023-01-09] VITALS: Ht 165.1 cm; Wt 57.7 kg
[~2023-01-09 20:11] MED LIST changes: -CYCLOPENTOLATE 1% OPHTH SOLN 2ML BTL OS SCH; -FLURBIPROFEN 0.03% OPHTH SOLN 2.5 ML OS SCH; -LIDOCAINE 1% SDV 5ML VIAL As Ordered ONE; -LR 1,000 ML IV SCH; -MIDAZOLAM INJ 2MG/2ML VIAL As Ordered ONE; -PHENYLEPHRINE 2.5% OPHTH SOL 2ML OS SCH; -TETRACAINE 0.5% OPHTH SOLN 4ML OS SCH; -fentaNYL 100 MCG/2 ML INJECTION As Ordered ONE
[2023-01-09 21:08] LABS: BASO # 0.1 10^3/uL (0.0-0.2); BASO % 0.7 % (0.0-1.0); EOS # 0.2 10^3/uL (0.0-0.5); EOS % 2.3 % (0.0-3.0); HEMATOCRIT 42.9 % (36.0-47.0); HEMOGLOBIN 13.9 g/dl (12.0-15.5); LYMPH # 1.6 10^3/uL (1.5-5.0); LYMPH % 17.9 % (24.0-44.0); MEAN CORPUSCULAR HEMOGLOBIN 30.3 pg (27.0-33.0); MEAN CORPUSCULAR HGB CONC 32.4 g/dl (32.0-36.5); MEAN CORPUSCULAR VOLUME 93.7 fl (80.0-96.0); MONO # 0.5 10^3/uL (0.0-0.8); MONO % 5.8 % (2.0-8.0); NEUTROPHILS # 6.4 10^3/uL (1.5-8.5); NEUTROPHILS % 73.1 % (36.0-66.0); PLATELET COUNT, AUTOMATED 236 10^3/uL (150-450); RED BLOOD COUNT 4.58 10^6/uL (4.00-5.40); WHITE BLOOD COUNT 8.7 10^3/uL (4.0-10.0)
[2023-01-09 21:19] LABS: INR 0.88; PROTHROMBIN TIME 12.1 SECONDS (12.5-14.5)
[2023-01-09 21:20] LABS: PARTIAL THROMBOPLASTIN TIME 23.4 SECONDS (24.8-34.2)
[2023-01-09 21:32] LABS: CK-MB VALUE MASS < 1.0 NG/ML (<3.6)
[2023-01-09 21:33] LABS: CPK CREATINE PHOSPHOKINASE 158 U/L (34-145); MB/CK RELATIVE INDEX 0.63 (< OR =4)
[2023-01-09 21:45] LABS: ALBUMIN 3.8 G/DL (3.2-5.2); ALKALINE PHOSPHATASE 130 U/L (46-116); ALT/SGPT 29 U/L (7.0-40); AST/SGOT 28 U/L (<34); BILIRUBIN,DIRECT 0.1 MG/DL (<0.4); BILIRUBIN,TOTAL 0.3 MG/DL (0.3-1.2); BLOOD UREA NITROGEN 17 MG/DL (9-23); CALCIUM LEVEL 9.5 MG/DL (8.3-10.6); CARBON DIOXIDE LEVEL 29 MMOL/L (20-31); CHLORIDE LEVEL 110 MMOL/L (98-107); CREATININE FOR GFR 1.05 MG/DL (0.55-1.30); GLOMERULAR FILTRATION RATE 54.8 (>39); GLUCOSE, FASTING 159 MG/DL (74-106); POTASSIUM SERUM 5.2 MMOL/L (3.5-5.1); SODIUM LEVEL 146 MMOL/L (136-145); TOTAL PROTEIN 7.3 G/DL (5.7-8.2)
[2023-01-09 21:58] LABS: RSV AMPLIFICATION NEGATIVE (NEGATIVE)
[2023-01-09] MEDS ORDERED: ASPIRIN 81MG CHEW TABLET PO ONE (22:35)
[2023-01-10] MEDS ORDERED: PREDOPD OS (01:38)
[2023-01-10] MEDS ORDERED: CALC1TAB63 PO (01:38)
[2023-01-10] MEDS ORDERED: KEPP10002 PO (01:38)
[2023-01-10] MEDS ORDERED: ASPI-161 PO (01:38)
[2023-01-10] MEDS ORDERED: ERGO500029 PO (01:38)
[2023-01-10] MEDS ORDERED: HOME MED LIST COMPLETE! XX SCH (01:40)
[2023-01-10] MEDS ORDERED: GLUCAGON INJ 1MG VIAL SC PRN (02:55)
[2023-01-10] MEDS ORDERED: GLUCOSE 4GM CHEW TABLET PO PRN (02:55)
[2023-01-10] MEDS ORDERED: DEXTROSE 50% 50ML SYRINGE IV PRN (02:55)
[2023-01-10] MEDS ORDERED: MECLIZINE 12.5 MG TAB PO PRN (02:55)
[2023-01-10] MEDS ORDERED: NS 0.45% 1,000 ML IV SCH (03:35)
[2023-01-10] MEDS ORDERED: levETIRAcetam 250MG TABLET (KEPPRA) PO ONE (04:00)
[2023-01-10 04:10] VITALS: BP 138/68
[2023-01-10 06:46] LABS: BLOOD UREA NITROGEN 12 MG/DL (9-23); CALCIUM LEVEL 9.3 MG/DL (8.3-10.6); CARBON DIOXIDE LEVEL 29 MMOL/L (20-31); CHLORIDE LEVEL 107 MMOL/L (98-107); GLOMERULAR FILTRATION RATE > 60.0 (>39); GLUCOSE, FASTING 115 MG/DL (74-106); SODIUM LEVEL 141 MMOL/L (136-145)
[2023-01-10] MEDS ORDERED: INSULIN LISPRO (NovoLOG) PER UNIT SC SCH ×2 (07:30→21:00)
[2023-01-10] MEDS: INSULIN LISPRO (NovoLOG) PER UNIT SC SCH ×2 (07:30→12:00)
[2023-01-10] MEDS: prednisoLONE ACET 1% OPHTH SUSP 5ML OS SCH ×2 (08:48→12:40)
[2023-01-10] MEDS ORDERED: ASPIRIN 81MG ENTERIC TABLET PO SCH (09:00)
[2023-01-10] MEDS ORDERED: levETIRAcetam 250MG TABLET (KEPPRA) PO SCH (13:00)
[2023-01-10] MEDS ORDERED: MECL-136 PO (13:13)
[2023-01-10] MEDS ORDERED: ATORVASTATIN 20 MG TAB PO SCH (21:00)
== END 2023-01-10 15:30 | disposition home or self-care (01) ==
LOC: M ED 20:11 → M ED INP 20:12 → ENRESERV 01-10 03:25 → M MSPAV 01-10 04:11
PROVIDERS: ADMIT Internal Medicine; ATTEND Internal Medicine
DX: R42 Dizziness and giddiness (principal); E86.0 Dehydration; G40.909 Epilepsy, unspecified, not intractable, without status epilepticus; Z86.73 Personal history of transient ischemic attack (TIA), and cerebral infarction without residual deficits; E78.00 Pure hypercholesterolemia, unspecified; Z79.899 Other long term (current) drug therapy; Z79.82 Long term (current) use of aspirin; Z79.52 Long term (current) use of systemic steroids
CPT/HCPCS: 36415; 70450; 70544; 70547; 70551; 71045; 80047; 80048; 80076; 82550; 82553; 84484; 85025; 85610; 85730; 86850; 86900; 86901; 87631; 93005; 93041; 94760; 96374; 97112; 97161; 97165; 99285; G0378

== ENCOUNTER → 2023-02-09 | Outpatient (CLI) | payer MEDICARE ==
[~2023-02-09] MED LIST changes: +ASPI-161 PO; +CALC1TAB63 PO; +ERGO500029 PO; +MECL-136 PO; +PREDOPD OS
[2023-02-09 10:30] LABS: BASO # 0.1 10^3/uL (0.0-0.2); BASO % 0.9 % (0.0-1.0); EOS # 0.3 10^3/uL (0.0-0.5); EOS % 5.8 % (0.0-3.0); HEMATOCRIT 43.2 % (36.0-47.0); LYMPH # 1.8 10^3/uL (1.5-5.0); LYMPH % 31.7 % (24.0-44.0); MEAN CORPUSCULAR HEMOGLOBIN 30.2 pg (27.0-33.0); MEAN CORPUSCULAR HGB CONC 32.4 g/dl (32.0-36.5); MEAN CORPUSCULAR VOLUME 93.1 fl (80.0-96.0); MONO # 0.5 10^3/uL (0.0-0.8); MONO % 9.4 % (2.0-8.0); NEUTROPHILS # 2.9 10^3/uL (1.5-8.5); NEUTROPHILS % 51.8 % (36.0-66.0); PLATELET COUNT, AUTOMATED 242 10^3/uL (150-450); RED BLOOD COUNT 4.64 10^6/uL (4.00-5.40); WHITE BLOOD COUNT 5.7 10^3/uL (4.0-10.0)
[2023-02-09 10:53] LABS: TOTAL 25(OH) VITAMIN D 62.5 NG/ML (20.0-100.0)
[2023-02-09 10:54] LABS: ALBUMIN 3.6 G/DL (3.2-5.2); ALKALINE PHOSPHATASE 126 U/L (46-116); ALT/SGPT 20 U/L (7.0-40); AST/SGOT 22 U/L (<34); BILIRUBIN,TOTAL 0.5 MG/DL (0.3-1.2); BLOOD UREA NITROGEN 15 MG/DL (9-23); CALCIUM LEVEL 8.8 MG/DL (8.3-10.6); CARBON DIOXIDE LEVEL 28 MMOL/L (20-31); CHLORIDE LEVEL 105 MMOL/L (98-107); CHOLESTEROL LEVEL 121 MG/DL (<200); CHOLESTEROL RISK RATIO 2.79 (<5); CREATININE FOR GFR 0.77 MG/DL (0.55-1.30); GLOMERULAR FILTRATION RATE > 60.0 (>39); GLUCOSE, FASTING 120 MG/DL (74-106); HDL CHOLESTEROL 43.3 MG/DL (>40); LDL CHOLESTEROL 51.5 MG/DL (<100); NON-HDL-C 77.7 MG/DL; POTASSIUM SERUM 4.1 MMOL/L (3.5-5.1); SODIUM LEVEL 140 MMOL/L (136-145); TOTAL PROTEIN 6.7 G/DL (5.7-8.2); TRIGLYCERIDES LEVEL 131 MG/DL (<150)
== END ==
LOC: M LAB 09:38
PROVIDERS: ATTEND Psychiatry & Neurology Neurology
DX: E55.9 Vitamin D deficiency, unspecified (principal); R56.9 Unspecified convulsions; I63.9 Cerebral infarction, unspecified; E78.5 Hyperlipidemia, unspecified; Z79.899 Other long term (current) drug therapy

== ENCOUNTER → 2023-09-10 | Outpatient (CLI) | payer MEDICARE ==
[2023-09-10 08:37] LABS: BASO # 0.1 10^3/uL (0.0-0.2); EOS # 0.3 10^3/uL (0.0-0.5); EOS % 6.2 % (0.0-3.0); HEMATOCRIT 43.9 % (36.0-47.0); HEMOGLOBIN 14.4 g/dl (12.0-15.5); LYMPH # 1.6 10^3/uL (1.5-5.0); LYMPH % 31.6 % (24.0-44.0); MEAN CORPUSCULAR HEMOGLOBIN 30.8 pg (27.0-33.0); MEAN CORPUSCULAR HGB CONC 32.8 g/dl (32.0-36.5); MONO # 0.6 10^3/uL (0.0-0.8); MONO % 10.9 % (2.0-8.0); NEUTROPHILS # 2.6 10^3/uL (1.5-8.5); NEUTROPHILS % 50.1 % (36.0-66.0); PLATELET COUNT, AUTOMATED 238 10^3/uL (150-450); RED BLOOD COUNT 4.67 10^6/uL (4.00-5.40); WHITE BLOOD COUNT 5.1 10^3/uL (4.0-10.0)
[2023-09-10 09:03] LABS: ALBUMIN 3.7 G/DL (3.2-5.2); ALKALINE PHOSPHATASE 126 U/L (46-116); ALT/SGPT 17 U/L (7.0-40); AST/SGOT 23 U/L (<34); BILIRUBIN,TOTAL 0.7 MG/DL (0.3-1.2); BLOOD UREA NITROGEN 15 MG/DL (9-23); CALCIUM LEVEL 9.5 MG/DL (8.3-10.6); CARBON DIOXIDE LEVEL 28 MMOL/L (20-31); CHLORIDE LEVEL 106 MMOL/L (98-107); CHOLESTEROL LEVEL 123 MG/DL (<200); CHOLESTEROL RISK RATIO 2.54 (<5); GLOMERULAR FILTRATION RATE > 60.0 (>39); GLUCOSE, FASTING 100 MG/DL (74-106); HDL CHOLESTEROL 48.3 MG/DL (>40); LDL CHOLESTEROL 57.5 MG/DL (<100); NON-HDL-C 74.7 MG/DL; SODIUM LEVEL 142 MMOL/L (136-145); TOTAL PROTEIN 7.2 G/DL (5.7-8.2); TRIGLYCERIDES LEVEL 86 MG/DL (<150)
== END ==
LOC: M LAB 07:43
PROVIDERS: ATTEND Nurse Practitioner Family
DX: E78.5 Hyperlipidemia, unspecified (principal); I63.9 Cerebral infarction, unspecified

== ENCOUNTER → 2024-10-24 | Outpatient (CLI) | payer MEDICARE ==
[~2024-10-24] MED LIST changes: -ASPI-161 PO; +ASPI-615 PO; -BAYE325T12 PO; +BAYE325T2 PO
== END ==
LOC: M WUC 12:08
PROVIDERS: ATTEND Physician Assistant
DX: M79.642 Pain in left hand (principal); M79.645 Pain in left finger(s); S62.612A Displaced fracture of proximal phalanx of right middle finger, initial encounter for closed fracture; X58.XXXA Exposure to other specified factors, initial encounter; Y92.9 Unspecified place or not applicable; Y93.9 Activity, unspecified; Y99.9 Unspecified external cause status

== ENCOUNTER → 2025-03-06 | Outpatient (CLI) | payer MEDICARE ==
[2025-03-06 16:46] LABS: BASO # 0.1 10^3/uL (0.0-0.2); BASO % 1.1 % (0.0-1.0); EOS # 0.1 10^3/uL (0.0-0.5); EOS % 2.6 % (0.0-3.0); LYMPH # 1.7 10^3/uL (1.5-5.0); LYMPH % 38.2 % (24.0-44.0); MONO # 0.5 10^3/uL (0.0-0.8); MONO % 10.8 % (2.0-8.0); NEUTROPHILS # 2.1 10^3/uL (1.5-8.5); NEUTROPHILS % 47.3 % (36.0-66.0); PLATELET COUNT, AUTOMATED 237 10^3/uL (150-450)
[2025-03-06 17:12] LABS: ALT/SGPT 18.0 U/L (7.0-40); AST/SGOT 27.0 U/L (<34); CALCIUM LEVEL 9.3 MG/DL (8.3-10.6); CARBON DIOXIDE LEVEL 28.0 MMOL/L (20-31); CHLORIDE LEVEL 106.0 MMOL/L (98-107); CREATININE FOR GFR 0.8 MG/DL (0.55-1.30); GLOMERULAR FILTRATION RATE 77.3 (>39); POTASSIUM SERUM 3.8 MMOL/L (3.5-5.1); SODIUM LEVEL 147.0 MMOL/L (136-145)
[2025-03-06 17:16] LABS: TOTAL 25(OH) VITAMIN D 78.5 NG/ML (20.0-100.0)
== END ==
LOC: M WUC 10:21
PROVIDERS: ATTEND Psychiatry & Neurology Neurology
DX: R56.9 Unspecified convulsions (principal); E55.9 Vitamin D deficiency, unspecified